=== PATIENT | female | born 1960 | race Caucasian/White ===

== ENCOUNTER → 2017-01-12 | Outpatient (CLI) | payer OTHER ==
[2015-06-13 08:59] VITALS: BP 167/90
--- NOTE | 2017-01-12 14:52 | RAD ---
DATE: 01/12/2017 EXAM: DIGITAL DIAGNOSTIC BILATERAL, BREAST LEFT HISTORY: 6 month follow-up for breast nodule COMPARISON: 02/28/2016 This study was interpreted with the benefit of Computerized Aided Detection (CAD). FINDINGS: The breast parenchyma demonstrates scattered fibroglandular densities, category B. A small nodule identified in the left breast appear slightly more prominent compared to prior exam. Targeted ultrasound of this region demonstrates no definite evidence of mass or lesion which most likely represents intramammary lymph node. Intramammary lymph nodes identified in the bilateral breasts. IMPRESSION: Benign findings BI-RADS CATEGORY: 2 BENIGN FINDING RECOMMENDED FOLLOW-UP: 12M 12 MONTH FOLLOW-UP PQRS compliance statement: Patient information was entered into a reminder system with a target due date 01/12/2018 for the next mammogram. Mammography is a sensitive method for finding small breast cancers, but it does not detect them all and is not a substitute for careful clinical examination. A negative mammogram does not negate a clinically suspicious finding and should not result in delay in biopsying a clinically suspicious abnormality. "Our facility is accredited by the [employer] Mammography Program."
== END | disposition home or self-care (01) ==
LOC: MAMMO 13:27
PROVIDERS: ATTEND Nurse Practitioner Family
DX: R92.8 Other abnormal and inconclusive findings on diagnostic imaging of breast (principal); N63 Unspecified lump in breast
CPT/HCPCS: 76641; G0204; 77066

== ENCOUNTER → 2018-01-28 | Outpatient (CLI) | payer OTHER | END | disposition home or self-care (01) | LOC: MAMMO 13:53 | DX: Z12.31 Encounter for screening mammogram for malignant neoplasm of breast (principal) | CPT/HCPCS: 77067 ==

== ENCOUNTER 2021-02-02 18:03 | Emergency (ER) | payer MEDICARE ==
[~2021-02-02] VITALS: Ht 167.6 cm; Wt 118.0 kg
[~2021-02-02 18:03] MED LIST: CLON-77 PO; CLON0.5T4 PO; HALO10TA PO; LISI-130 PO; LISI1TAB20 PO; METO25TA4 PO; TRAZ-118 PO
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
--- NOTE | 2021-02-02 18:40 | EKG ---
[facility] [address] [place] [address] Test Date: 2021-02-02 Test Time: 18:15:44 Pat Name: LOVE SALAZAR Department: Room: Gender: F Meat Grinder: : 1960 Requested By: CUATE JACKSON Order Number: [id number] Reading MD: Measurements Intervals Singer Rate: 67 P: 31 AK: 174 QRS: 56 QRSD: 92 T: 64 QT: 398 QTc: 423 Interpretive Statements SINUS RHYTHM NO SPECIFIC ECG ABNORMALITIES RI6.01 No previous ECG available for comparison
[2021-02-02 18:44] LABS: BASO % 1 % (0-3); EOS # 0.1 x10^3/uL (0.0-0.7); EOS % 2 % (0-3); HEMATOCRIT 42.3 % (36.0-47.0); HEMOGLOBIN 13.7 g/dL (12.0-15.5); LYMPH # 1.8 x10^3/uL (1.0-4.8); LYMPH % 29 % (24-48); MEAN CORPUSCULAR HEMOGLOBIN 28 pg (25-35); MEAN CORPUSCULAR HGB CONC 32 g/dL (31-37); MEAN CORPUSCULAR VOLUME 85 fL (79-100); MONO # 0.5 x10^3/uL (0.0-1.1); MONO % 8 % (0-9); NEUT # 3.8 x10^3/uL (1.8-7.7); NEUT % 61 % (31-73); PLATELET COUNT 180 x10^3/uL (140-400); RED BLOOD COUNT 4.96 x10^6/uL (3.50-5.40); RED CELL DISTRIBUTION WIDTH 13.3 % (11.5-14.5); WHITE BLOOD COUNT 6.3 x10^3/uL (4.0-11.0)
[2021-02-02 18:57] LABS: CALCIUM 8.4 mg/dL (8.5-10.1); CREATININE 0.8 mg/dL (0.6-1.0); GFR 73.2; POTASSIUM 4.2 mmol/L (3.5-5.1)
[2021-02-02 19:10] LABS: ALBUMIN 3.6 g/dL (3.4-5.0); ALBUMIN/GLOBULIN RATIO 1.3 (1.0-1.7); MAGNESIUM 2.1 mg/dL (1.8-2.4); TOTAL BILIRUBIN 0.4 mg/dL (0.2-1.0); TOTAL PROTEIN 6.4 g/dL (6.4-8.2)
--- NOTE | 2021-02-02 19:15 | RAD ---
Study: XR CHEST 1V Indication: Chest pain. Comparison: 02/28/2020 Findings: No pneumothorax, layering effusion or focal airspace abnormality. Improved aeration of the lungs from the available comparison. Within normal limits cardiomediastinal silhouette and ricardo. Impression: No acute radiographic abnormality of the chest. Electronically signed by: ESPERANZA HASSAN MD (02/02/2021 7:12 PM) [facility]
[2021-02-02] MEDS ORDERED: IOHEXOL 350 MG/ML 100 ML VIAL. IV ONE (21:00)
[2021-02-02] MEDS ORDERED: CONTRAST GIVEN. MC PRN (21:00)
--- NOTE | 2021-02-02 21:17 | RAD ---
Exam: CT of chest with contrast INDICATION: Short of air TECHNIQUE: Sequential axial images through the chest obtained following the administration 100 mL of Omni 350 IV contrast. Sagittal and coronal reformatted images were reconstructed from the axial data and reviewed. 3-D reformatted images were reconstructed from the axial data and reviewed. Comparisons: Chest x-ray same day FINDINGS: Visual is portions of the thyroid are unremarkable. No enlarged mediastinal lymph nodes are identifie d. Heart size is normal. No pericardial effusion. Thoracic aorta has a normal course and caliber. Pulmon russel artery is not enlarged. No pulmonary embolus identified within the main, lobar or segmental Airways are patent. There is patchy ground glass opacity at the left lower lobe. No suspicious lung n odules. No pleural effusion or thickening. Several vague hypoattenuating lesions noted within the liver incompletely characterized on this study . No suspicious osseous lesions or acute fractures. IMPRESSION: 1. No pulmonary embolus identified within the main, lobar or segmental pulmonary arteries. 2. Vague hypoattenuating lesions noted in the liver in completely characterized on this study. Furth er evaluation with nonemergent liver protocol CT or MRI is recommended. Exposure: One or more of the following in the visualized dose reduction techniques were utilized for this examination: 1. Automated exposure control 2. Adjustment of the MA and/or KV according to patient size 3. Use of iterative of reconstructive technique Electronically signed by: Lori Golden MD (02/02/2021 9:15 PM) [facility]
[2021-02-02 22:17] VITALS: BP 144/79
== END 2021-02-02 22:35 | disposition home or self-care (01) ==
LOC: ER 18:03
DX: R07.89 Other chest pain (principal); F20.9 Schizophrenia, unspecified; K76.9 Liver disease, unspecified; I10 Essential (primary) hypertension
CPT/HCPCS: 36415; 71045; 71275; 80053; 83690; 83735; 83880; 84484; 85025; 85379; 93005; 99284; Q9967